=== PATIENT | male | born 1995 | race Caucasian/White ===

== ENCOUNTER 2021-11-26 11:59 | Emergency (ER) | payer MEDICAID ==
[~2021-11-26] VITALS: Ht 172.7 cm; Wt 116.0 kg
[2021-11-26 12:04] VITALS: BP 148/85
[2021-11-26] MEDS ORDERED: LOPERAMIDE HCL 2MG CAPSULE PO ONE (12:30)
[2021-11-26] MEDS ORDERED: ONDANSETRON 4MG ODT PO ONE (12:30)
[2021-11-26] MEDS ORDERED: ONDA4TAB11 PO (13:35)
[2021-11-26] MEDS ORDERED: LOPE2CAP MT (13:35)
== END 2021-11-26 13:43 | disposition home or self-care (01) ==
LOC: ER 12:39
DX: R11.2 Nausea with vomiting, unspecified (principal)
CPT/HCPCS: 99283; Q0162

== ENCOUNTER 2023-11-06 11:55 | Emergency (ER) | payer MEDICAID ==
[~2023-11-06] VITALS: Ht 172.7 cm; Wt 120.0 kg
[~2023-11-06 11:55] MED LIST: LOPE2CAP MT; ONDA4TAB11 PO
[2023-11-06 12:07] VITALS: O2SAT 98
[2023-11-06 16:41] VITALS: BP 148/101; PULSE 68; RESP 16; TEMP 98.4
== END 2023-11-06 16:45 | disposition home or self-care (01) ==
LOC: ER 11:55
DX: J06.9 Acute upper respiratory infection, unspecified (principal)
CPT/HCPCS: 71045; 99283

== ENCOUNTER 2023-12-24 10:17 | Emergency (ER) | payer MEDICAID ==
[~2023-12-24] VITALS: Ht 172.7 cm; Wt 118.0 kg
[2023-12-24 10:22] VITALS: O2SAT 98
[2023-12-24 11:10] VITALS: PULSE 92; RESP 20
[2023-12-24] MEDS: IPRATROPIUM BROMIDE (0.02%) 0.5MG/2.5ML NEB HHN STA (11:10)
[2023-12-24] MEDS: ALBUTEROL (0.083%) 2.5MG/3ML NEB HHN STA (11:10)
[2023-12-24] MEDS: PREDNISONE 20MG TABLET PO STA (11:27)
[2023-12-24] MEDS ORDERED: ALBU6.7H15 INH (11:48)
[2023-12-24] MEDS ORDERED: P20 MT (11:48)
[2023-12-24 12:26] VITALS: BP 132/65; PULSE 92; RESP 20; TEMP 98.3
== END 2023-12-24 12:27 | disposition home or self-care (01) ==
LOC: ER 10:17
DX: J20.9 Acute bronchitis, unspecified (principal); R06.2 Wheezing
CPT/HCPCS: 71045; 94640; 99283; J7512; Z7610 ×3